=== PATIENT | male | born 1980 | race Caucasian/White ===

== ENCOUNTER → 2016-09-16 | Outpatient (CLI) | payer MEDICARE | LOC: KOH-I 09-13 08:45 | DX: S83.241D Other tear of medial meniscus, current injury, right knee, subsequent encounter (principal); S72.431D Displaced fracture of medial condyle of right femur, subsequent encounter for closed fracture with routine healing; S82.141D Displaced bicondylar fracture of right tibia, subsequent encounter for closed fracture with routine healing; S83.411D Sprain of medial collateral ligament of right knee, subsequent encounter; M79.89 Other specified soft tissue disorders | CPT/HCPCS: 73721 ==